=== PATIENT | male | born 1950 | race Caucasian/White ===

== ENCOUNTER 2019-02-09 12:25 | Emergency (ER) | payer OTHER ==
[~2019-02-09] VITALS: Ht 152.4 cm; Wt 61.2 kg
[2019-02-09 12:39] VITALS: BP 203/88
--- NOTE | 2019-02-09 13:00 | NUR ---
68 Y/O M C/O N/V DIZZINESS X1 DAY. PATIENT DENIES PAIN AND NO RECENT INJRY. PATIENT HAS BLURRY VISSION X1 DAY. PATIENT STATES HE STOPPED TAKING HIS MEDICATOINS A YEAR AGO FOR HTN AND DM. HX: DM, HTN, HIGH CHOLESTEROL
[2019-02-09 13:21] LABS: HEMOGLOBIN 15.1 g/dL (12.0-18.0); MEAN CORPUSCULAR HEMOGLOBIN 32 pg (27-31); MEAN CORPUSCULAR HGB CONC 34 g/dL (33-37); MEAN CORPUSCULAR VOLUME 96.1 fL (80-94); PLATELET COUNT (AUTO) 269 K/uL (140-450); RED BLOOD CELL COUNT(AUTO) 4.69 MIL/uL (4.20-6.10); RED CELL DISTRIBUTION WIDTH 13.2 % (11.6-13.7)
--- NOTE | 2019-02-09 13:37 | NUR ---
PT TAKEN TO CT VIA W/C
--- NOTE | 2019-02-09 13:40 | NUR ---
PT RETURNED FROM CT VIA WHEELCHAIR
[2019-02-09 13:42] LABS: EOSINOPHILS % (MANUAL) 2 % (0-4); LYMPHOCYTES % (MANUAL) 6 % (20-46); MONOCYTES % (MANUAL) 4 % (5-12)
[2019-02-09 13:57] LABS: POTASSIUM 3.9 mmol/L (3.5-5.1)
[2019-02-09 13:59] LABS: CREATININE 0.8 mg/dL (0.7-1.3)
[2019-02-09 14:00] LABS: ALBUMIN 3.9 g/dL (3.4-5.0); TOTAL BILIRUBIN 0.7 mg/dL (0.0-1.0)
[2019-02-09 15:04] VITALS: BP 180/81
--- NOTE | 2019-02-09 15:04 | NUR ---
Patient discharged with v/s stable. Written and verbal after care instructions given and explained. Patient alert, oriented and verbalized understanding of instructions. Ambulatory with steady gait. All questions addressed prior to discharge. ID band removed. Patient advised to follow up with PMD. Rx of HYDROCHLORIDE, VITAMIN D3, BENAZERIL, METFORMIN, SIMVASTATIN given. Patient educated on indication of medication including possible reaction and side effects. Opportunity to ask questions provided and answered.
== END 2019-02-09 15:04 | disposition home or self-care (01) ==
LOC: MED 12:25
DX: R42 Dizziness and giddiness (principal); R11.2 Nausea with vomiting, unspecified; F17.200 Nicotine dependence, unspecified, uncomplicated; E11.9 Type 2 diabetes mellitus without complications; I10 Essential (primary) hypertension
CPT/HCPCS: 36415; 70450; 71045; 80053; 83690; 84484; 85025; 87804; 99284; Q0092